=== PATIENT | female | born 1965 | race American Indian/Alaskan Native ===

== ENCOUNTER 2021-02-23 21:54 | Emergency (ER) | payer SELFPAY ==
[2021-02-23] MEDS ORDERED: HYDROmorphone 1 MG/1 ML INJ IM ONE (23:22)
[2021-02-23] MEDS ORDERED: KETOROLAC 30 MG/1 ML INJ IM ONE (23:22)
[2021-02-23] MEDS ORDERED: BUPIVACAINE/PF (0.5%) 5 MG/1 ML 10 ML VIAL INFILTRATI STA (23:23)
--- NOTE | 2021-02-23 23:24 | Emergency Department Report ---
Upper Extremity - HPI Chief Complaint: Extremity Injury, Upper Stated Complaint: RT ARM INJURY Time Seen by Provider: 02/23/21 23:16 Upper Extremity: Right Wrist, Right Hand Occurred When: Today Mechanism: Fall Severity: severe Symptoms: Yes Pain with Movement, Yes Deformity, Yes Limited Range of Movement, Yes Swelling, No Numbness, No Weakness, No Bruising/Ecchymosis, No Laceration or Abrasion Other History: The patient was evaluated in the emergency department for symptoms described in the history of present illness. He/she was evaluated in the context of the global COVID-19 pandemic, which necessitated consideration that the patient might be at risk for infection with the virus that causes COVID-19. Institutional protocols and algorithms that pertain to the evaluation of patients at risk for COVID-19 are in a state of rapid change based on information released by regulatory bodies including the CDC and federal and state organizations. These policies and algorithms were followed during the patient's care in the emergency department. Please note that these policies, procedures and recommendations changed on a rapid basis. Patient is a pleasant and cooperative 55-year-old female, who is left-hand dominant, who works as a teacher resource, presenting to the ER with a complaint of traumatic right sided hand/wrist pain, after mechanical trip and fall, and fall on outstretched hand. She denies headache, neck pain, chest pain, abdominal pain, shortness of breath, tingling, numbness, weakness, shoulder pain, or elbow pain. Her pain is in the right wrist, increases with palpation and range of motion, and decreases with rest. She does not have a history of high blood pressure that she is aware of. ED Review of Systems ROS: Stated complaint: RT ARM INJURY Other details as noted in HPI Constitutional: other (Denies loss of taste and smell). denies: fever Eyes: denies: eye discharge ENT: denies: epistaxis Respiratory: denies: cough Cardiovascular: denies: syncope Musculoskeletal: joint swelling, arthralgia, myalgia Neurological: denies: weakness, numbness Psychiatric: anxiety Hematological/Lymphatic: denies: easy bleeding ED Past Medical Hx - Past Medical History Previous Medical History?: No - Surgical History Past Surgical History?: No - Social History Smoking Status: Never Smoker Substance Use Type: None - Medications Home Medications: Home Medications Medication Instructions Recorded Confirmed Last Taken Type Acetaminophen [Non-Aspirin Extra 500 mg PO Q6HR PRN #30 tablet 02/23/21 Unknown Rx Strength] Ibuprofen [Motrin] 600 mg PO Q8H PRN #30 tablet 02/23/21 Unknown Rx Morphine Sulfate [Morphine Sulfate 7.5 mg PO Q6HR PRN #10 tablet 02/23/21 Unknown Rx IR] Upper Extremity Exam - Exam General: Vital signs noted. Mild distress. Alert and acting appropriately. No facial droop. Tongue midline. Extraocular movements intact bilaterally. Facial sensation intact to light touch in V1, V2, V3 distribution bilaterally. 5 and a 5 strength in 4 extremities. Sensation intact to light touch in 4 extremities. 2+ pulses noted in the bilateral upper extremities. There is no tenderness in the bilateral shoulders, elbows, or proximal forearm. Left upper extremity is nontender. Right upper extremity tender on the lateral distal forearm, lateral medial forearm. Sensation is intact to light touch in the bilateral deltoid, median, radian, ulnar distribution. Thumb opposition intact, although painful. Lumbricals intact, although painful to range. Head and Torso: No HEENT Abnormality, No Neck Tenderness, No Chest/Lungs Abnormality, No Abdominal Tenderness, No Back Tenderness Shoulder Exam: Yes Normal Range of Motion in Shoulder, No Shoulder Tenderness, No Clavicle Tenderness, No Shoulder Deformity, No AC Joint Tenderness Arm Exam: No Arm/Humerus Tenderness, No Arm Deformity Elbow: Yes Normal Range of Motion in Elbow, No Elbow Tenderness, No Elbow Deformity Forearm: Yes Forearm Tenderness (There is right distal forearm tenderness), Yes Forearm Deformity (There is right distal forearm deformity), Yes Pain with Pronation (Right side), Yes Pain with Supination (Right side) Wrist: Yes Wrist Tenderness (Right side), Yes Wrist Deformity (Right side), Yes Snuffbox Tenderness (Right side), Yes Pain with Axial Thumb Compression (Right side), No Normal ROM in Wrist (Limited secondary to pain) Hand: Yes Hand Tenderness, Yes Normal ROM in Digit(s), No Hand Deformity, No Digit Tenderness, No Digit(s) Deformity, No Tendon Dysfunction CMS Exam: Yes Normal Distal Pulses, Yes Normal Capillary Refill, Yes Normal Distal Sensation, No Broken Skin ED Course Vital Signs 02/23/21 22:52 Temperature 98.5 F Pulse Rate 76 Respiratory 16 Rate Blood Pressure 172/91 O2 Sat by Pulse 97 Oximetry - Reevaluation(s) Reevaluation #1: 05/29/21 23:30 Differential diagnosis, including but not limited to: Fracture, dislocation, sprain, strain Assessment and plan: 55-year-old female, status post fall on outstretched hand, with what appears to be an impacted right sided distal radius fracture, and possible avulsion fracture of left distal ulna. She is neurovascularly intact. We will treat her pain, perform hematoma block, she will require a thumb spica, as well as sugar tong splint. Counseled patient that she will need to closely follow-up with outpatient orthopedics, she will likely require surgical fixation, as well as physical therapy/Occupational Therapy. Reevaluation #2: 02/24/21 02:04 Splint is applied by donor services team leader and is acceptable. Patient feels much improved after bupivacaine hematoma block. Range of motion is improved in the fingers and thumb. Lumbricals remain intact. Have reiterated discharge instructions. Patient and family members endorsed understanding. - Joint Aspiration/Injection Consent Obtained: verbal consent Time Out Performed: Yes Indications: injection of medication (Hematoma block) Side of Body: right Joint Aspirated: wrist/hand Ultrasound Guidance: No Skin Prep: sterile prep and drape (Alcohol swab) Local Anesthesia Used: Bupivicaine 0.25% Amount of Anesthesia Used (mls): 4 Needle Size Used: Other (26-gauge needle) Syringe Size Used: 5cc Medication Injected, if any: other (Bupivacaine) Amount of Medication Injected (mls): 4 Patient Tolerated Procedure: well Complications: none - Pulse Oximetry Interpretation Digit-Finger Initial Pulse Oximetry Readin O2 Sat by Pulse Oximetry: 96 Actions Taken: none ED Medical Decision Making - Lab Data Vital Signs 02/23/21 22:52 Temperature 98.5 F Pulse Rate 76 Respiratory 16 Rate Blood Pressure 172/91 O2 Sat by Pulse 97 Oximetry Elevated blood pressure reviewed and appreciated. This is likely secondary to pain. The patient does not have a history of hypertension as per her history. Please reference the [employer] clinical policy on asymptomatic elevated blood pressure/hypertension. - Radiology Data Radiology results: report reviewed, image reviewed HISTORY:Right lower forearm swelling. COMPARISON: None. TECHNIQUE: AP lateral and obliques views were obtained FINDINGS: Bones: Comminuted fracture of the metaphyseal diaphyseal aspect of the distal radius is noted with extension into the articular space. Displacement and slight angulation is noted. Possible fracture of the ulnar styloid. Joint spaces: Maintained. Soft tissues: No significant abnormality. Additional findings: None. IMPRESSION: 1. Fracture as noted Signer Name: Jason Wolf MD Signed: 02/23/2021 10:28 PM Workstation Name: [id number] Critical care attestation.: If time is entered above; I have spent that time in minutes in the direct care of this critically ill patient, excluding procedure time. ED Disposition Clinical Impression: Pain in right ulna Fracture of right distal radius Qualifiers: Encounter type: initial encounter Fracture type: closed Fracture morphology: unspecified fracture morphology Qualified Code(s): S52.501A - Unspecified fracture of the lower end of right radius, initial encounter for closed fracture Fall Qualifiers: Encounter type: initial encounter Qualified Code(s): W19.XXXA - Unspecified fall, initial encounter Disposition: TO HOME OR SELFCARE Is pt being admited?: No Does the pt Need Aspirin: No Condition: Good Instructions: Cast or Splint Care, Adult, [id number], Radial Fracture Rehab- [facility] Additional Instructions: Please follow-up with an orthopedic surgeon within the next 3 to 5 days for distal right-sided radius fracture. Patient will likely require surgical fixation, as well as outpatient physical therapy and Occupational Therapy. Keep the splint in place, and take the pain medication as needed and directed. If taking the morphine sulfate for pain, do not drive, consume alcohol, or make important decisions. When taking ibuprofen for pain, make certain to take it with food. Dr. Art is an orthopedic surgeon. [facility] is a local orthopedic group. Pain typically gets worse before gets better after mechanical fall. Patient may alternate ice packs and heat packs as needed to areas of the body that are having physical pain. Please avoid heavy lifting and strenuous physical activity, and do not use the right upper extremity for any significant or heavy lifting. Patient may use the right upper extremity for light duty as tolerated. Please return to the emergency room right away with new pain, worsened pain, migration of pain, projectile vomiting, change in mental status, confusion, inability to tolerate liquid feeds, tingling, numbness, weakness, or any new, worsened or different symptoms not present on the initial emergency room evaluation. Prescriptions: Morphine Sulfate [Morphine Sulfate IR] 7.5 mg PO Q6HR PRN #10 tablet PRN Reason: Pain , Severe (7-10) Ibuprofen [Motrin] 600 mg PO Q8H PRN #30 tablet PRN Reason: Pain Acetaminophen [Non-Aspirin Extra Strength] 500 mg PO Q6HR PRN #30 tablet PRN Reason: Pain , Severe (7-10) Referrals: REUBEN ART MD [Staff Physician] - 3-5 Days [facility] [Provider Group] - 3-5 Days Forms: Work/School Release Form(ED)
--- NOTE | 2021-02-23 23:32 | XRay Report ---
HISTORY:Right lower forearm swelling. COMPARISON: None. TECHNIQUE: AP lateral and obliques views were obtained FINDINGS: Bones: Comminuted fracture of the metaphyseal diaphyseal aspect of the distal radius is noted with ex tension into the articular space. Displacement and slight angulation is noted. Possible fracture of t he ulnar styloid. Joint spaces: Maintained. Soft tissues: No significant abnormality. Additional findings: None. IMPRESSION: 1. Fracture as noted Signer Name: Jason Wolf MD Signed: 02/23/2021 11:28 PM Workstation Name: [id number]
[2021-02-24 02:09] VITALS: BP 152/89
== END 2021-02-24 02:23 | disposition home or self-care (01) ==
LOC: ED 21:54
DX: S52.591A Other fractures of lower end of right radius, initial encounter for closed fracture (principal); Z79.899 Other long term (current) drug therapy; W18.39XA Other fall on same level, initial encounter; Y93.89 Activity, other specified; Y92.89 Other specified places as the place of occurrence of the external cause; Y99.8 Other external cause status
CPT/HCPCS: 20605; 73090; 96372; 99283; J1170; J1885

== ENCOUNTER 2021-03-07 09:55 | Day surgery (SDC) | payer BC ==
[~2021-03-07 09:55] MED LIST: ACETAMINOPHEN 500 MG TAB PO SCH; CELECOXIB 200 MG CAP PO NR; GABAPENTIN 300 MG CAP PO NR; LACTATED RINGERS 1,000 ML IV SCH; MIDAZOLAM 2 MG/2 ML INJ IV NR; ceFAZolin/Water 2 GM/20 ML 2 GM/20 ML SYRINGE IV NR; fentaNYL 100 MCG/2 ML INJ IV PRN
[2021-03-07] MEDS ORDERED: BUPIVACAINE/PF (0.25%) 2.5 MG/ML 30 ML VIAL INFILTRATI ONE (13:12)
[2021-03-07] MEDS ORDERED: dexAMETHasone 4 MG/ML VIAL ONE (13:12)
[2021-03-07] MEDS ORDERED: ONDANSETRON 4 MG/2 ML INJ IV PRN (13:17)
[2021-03-07] MEDS ORDERED: HYDROcodone/ACETAMINOPHEN 5-325 MG TAB PO PRN (13:17)
[2021-03-07] MEDS ORDERED: HYDROmorphone 1 MG/1 ML INJ IV PRN (13:17)
--- NOTE | 2021-03-07 13:17 | Anesthesia Consultation ---
Anesthesia Consult and Med Hx Date of service: 03/07/21 - Airway Anesthetic Teeth Evaluation: Good ROM Head & Neck: Adequate Mental/Hyoid Distance: Adequate Mallampati Class: Class III Intubation Access Assessment: Possibly Difficult - Pre-Operative Health Status ASA Pre-Surgery Classification: ASA1 Proposed Anesthetic Plan: General Nerve Block: Supraclavicular - Pulmonary Hx Smoking: No Hx Respiratory Symptoms: No Hx Sleep Apnea: No (MORRIS PRE SCREEN LOW RISK) - Cardiovascular System Hx Hypertension: No - Central Nervous System CVA: No - Endocrine Hx Renal Disease: No Hx Liver Disease: No Hx Insulin Dependent Diabetes: No Hx Non-Insulin Dependent Diabetes: No Hx Thyroid Disease: No - Other Systems Hx Obesity: Yes (BMI 32) - Additional Comments Anesthesia Medical History Comments: No hx anesthetic complications.
--- NOTE | 2021-03-07 13:17 | Anesthesia Day of Surgery ---
Anesthesia Day of Surgery - Day of Surgery Patient Examined: Yes Patient H&P Reviewed: Yes Patient is NPO: Yes
[2021-03-07] MEDS ORDERED: propofoL 200 MG/20 ML VIAL IV ONE (13:31)
[2021-03-07] MEDS ORDERED: LIDOCAINE MPF (2%) 20 MG/1 ML VIAL 5 ML ONE (13:31)
[2021-03-07] MEDS ORDERED: HYDROmorphone 1 MG/1 ML INJ ONE (13:31)
[2021-03-07] MEDS ORDERED: BUPIVACAINE/PF (0.5%) 5 MG/1 ML 30 ML VIAL INFILTRATI ONE (13:35)
[2021-03-07] MEDS ORDERED: NEOMY 40 MG/POLYMYXIN B 200,000 UNITS/ML (GU) AMPULE IR ONE (13:36)
[2021-03-07] MEDS ORDERED: ePHEDrine SULFATE 50 MG/1 ML INJ ONE (14:26)
[2021-03-07] MEDS ORDERED: ONDANSETRON 4 MG/2 ML INJ ONE (14:29)
[2021-03-07] MEDS ORDERED: dexAMETHasone 20 MG/5 ML VIAL ONE (14:29)
--- NOTE | 2021-03-07 15:29 | Procedure Note ---
Date of procedure: 03/07/21 Pre-op diagnosis: Displaced comminuted right distal radius fracture Post-op diagnosis: same Procedure: Closed reduction insertion of intramedullary nail right distal radius Procedure The patient was brought to the OR after being given a axillary nerve block for postop pain management, she was placed on the OR table in supine position following induction with MAC anesthesia the patient's right upper extremity was prepped and draped in the usual sterile manner. A timeout procedure was done to identify the patient and the correct operative site next the arm was then exsanguinated followed by inflation of the pneumatic tourniquet to 250 mmHg using C arm the fracture was then manipulated into a more reduced or anatomic position the right distal radius was then held in place via temporary K wire fixation following this an incision was made over the Franklyn's tubercle this was then taken down sharply through skin and subcu care was taken to protect the soft tissue structures next using a 0.62 K wire the distal entry portal was established this was then overreamed next using the broach the distal fragment as well as the medullary canal proximally were aligned following this a size 2 micro nail was inserted using the the targeting device 3 screws were inserted into the distal fragment followed by 2 placed dorsally in the proximal fragment AP and lateral views were obtained showing good reduction of the fracture and placement of our hardware. Next the wounds were then copiously irrigated and was closed in a standard routine fashion postop dressings were applied as well as a well-padded forearm splint. Anesthesia: MAC, regional Surgeon: REUBEN JORDAN (Julisa Cornejo, 1st assist) Estimated blood loss: minimal Pathology: none Condition: stable Disposition: PACU
--- NOTE | 2021-03-07 16:40 | XRay Report ---
RIGHT WRIST 2 VIEWS INDICATION / CLINICAL INFORMATION: ORIF RT WRIST. COMPARISON: None available. FINDINGS: Intraoperative images demonstrate ORIF of the distal radial fracture. Signer Name: Liam Doherty MD Signed: 03/07/2021 4:35 PM Workstation Name: [id number]
--- NOTE | 2021-03-07 17:07 | Post Anesthesia Evaluation ---
- Post Anesthesia Evaluation Patient Participated: Yes Airway Patent: Yes Stable Respiratory Function: Yes Nausea/Vomiting: No Temp > 96.8F: Yes Pain Manageable: Yes Adequeate Hydration: Yes Anesthesia Complications: No Block Receding Appropriately: Yes
[2021-03-07 19:41] VITALS: BP 132/82
== END 2021-03-07 09:56 | disposition home or self-care (01) ==
LOC: OR 09:55
PROVIDERS: ATTEND Orthopaedic Surgery
DX: S52.571A Other intraarticular fracture of lower end of right radius, initial encounter for closed fracture (principal); S52.591A Other fractures of lower end of right radius, initial encounter for closed fracture; Z79.899 Other long term (current) drug therapy; E66.9 Obesity, unspecified; Z68.32 Body mass index [BMI] 32.0-32.9, adult; Z86.2 Personal history of diseases of the blood and blood-forming organs and certain disorders involving the immune mechanism; W18.39XA Other fall on same level, initial encounter; Y93.89 Activity, other specified; Y92.89 Other specified places as the place of occurrence of the external cause; Y99.8 Other external cause status
CPT/HCPCS: 25606; 64415; 64417; 73100; C1713; J0690; J1100; J1170; J2250; J2405; J2704; J3010; J7120; 64450

== ENCOUNTER 2021-08-26 13:40 | Outpatient (CLI) | payer BC ==
--- NOTE | 2021-08-26 14:46 | XRay Report ---
RIGHT WRIST 4 VIEWS INDICATION: Right wrist pain. COMPARISON: 03/07/2021 IMPRESSION: Osteopenia is evident. The healed internally fixated distal radial fracture appears unch anged in position and alignment since 03/07/2021. No evidence for acute fracture. Mild osteoarthritic changes are noted. RIGHT HAND 3 VIEWS INDICATION: RIGHT HAND PAIN. COMPARISON: None. IMPRESSION: Osteopenia is evident. No acute osseous abnormality or bone lesion. Mild diffuse osteoa rthritic changes are noted. The soft tissues are unremarkable Signer Name: Chapo Chicas Jr, MD Signed: 08/26/2021 2:41 PM Workstation Name: [id number]
== END 2021-08-26 13:41 | disposition home or self-care (01) ==
LOC: XRAY 13:40
PROVIDERS: ATTEND Orthopaedic Surgery
DX: S52.591A Other fractures of lower end of right radius, initial encounter for closed fracture (principal); M19.031 Primary osteoarthritis, right wrist; M85.88 Other specified disorders of bone density and structure, other site; M19.041 Primary osteoarthritis, right hand; M85.841 Other specified disorders of bone density and structure, right hand; X58.XXXA Exposure to other specified factors, initial encounter; Y93.89 Activity, other specified; Y92.89 Other specified places as the place of occurrence of the external cause; Y99.8 Other external cause status

== ENCOUNTER 2021-09-18 08:18 | Day surgery (SDC) | payer BC ==
[2021-09-18] MEDS ORDERED: LACTATED RINGERS 1,000 ML IV SCH (09:00)
[2021-09-18] MEDS ORDERED: methylPREDNISolone ACETATE 40 MG/1 ML INJ ONE (09:15)
[2021-09-18] MEDS ORDERED: LIDOCAINE (1%) 10 MG/1 ML VIAL 20 ML MDV ONE (09:15)
[2021-09-18] MEDS ORDERED: BUPIVACAINE/PF (0.25%) 2.5 MG/ML 30 ML VIAL INFILTRATI ONE (09:21)
[2021-09-18] MEDS ORDERED: ONDANSETRON 4 MG/2 ML INJ IV PRN (09:31)
[2021-09-18] MEDS ORDERED: HYDROmorphone 1 MG/1 ML INJ IV PRN (09:31)
--- NOTE | 2021-09-18 09:32 | Anesthesia Day of Surgery ---
Anesthesia Day of Surgery - Day of Surgery Patient Examined: Yes Patient H&P Reviewed: Yes Patient is NPO: Yes
--- NOTE | 2021-09-18 09:33 | Anesthesia Consultation ---
Anesthesia Consult and Med Hx Date of service: 09/18/21 - Airway Anesthetic Teeth Evaluation: Good ROM Head & Neck: Adequate Mental/Hyoid Distance: Adequate Mallampati Class: Class II Intubation Access Assessment: Good - Pre-Operative Health Status ASA Pre-Surgery Classification: ASA1 Proposed Anesthetic Plan: General - Pulmonary Hx Smoking: No Hx Respiratory Symptoms: No Hx Sleep Apnea: No (MORRIS PRE SCREEN LOW RISK) - Cardiovascular System Hx Hypertension: No - Central Nervous System CVA: No Hx Psychiatric Problems: No - Endocrine Hx Renal Disease: No Hx Liver Disease: No Hx Insulin Dependent Diabetes: No Hx Non-Insulin Dependent Diabetes: No Hx Thyroid Disease: No - Hematic Hx Anemia: Yes (WITH PREG ONLY) - Other Systems Hx Cancer: No Hx Obesity: No - Additional Comments Anesthesia Medical History Comments: Was here [id number]
[2021-09-18] MEDS ORDERED: LIDOCAINE MPF (2%) 20 MG/1 ML VIAL 5 ML ONE (09:44)
[2021-09-18] MEDS ORDERED: PHENYLEPHRINE/NS 1,000 MCG/10 ML SYRINGE (OR USE) IV ONE (09:44)
[2021-09-18] MEDS ORDERED: fentaNYL 100 MCG/2 ML INJ ONE (09:45)
[2021-09-18] MEDS ORDERED: propofoL 200 MG/20 ML VIAL IV ONE (09:45)
--- NOTE | 2021-09-18 10:21 | Procedure Note ---
Date of procedure: 09/18/21 Pre-op diagnosis: Stiff right fourth and fifth fingers status post ORIF right distal radius Post-op diagnosis: same Procedure: Manipulation right 4,5th fingers Procedure The patient was brought to the OR and placed in the OR table in supine position following induction with MAC anesthesia. A timeout procedure was done to identify the patient and the correct operative site. Next the right hand was grasped and gentle flexion/extension maneuvers done along the ulnar border of the hand beginning at the wrist,metacarpophalangeal, PIP, and DIP joints of both 4, and 5 th digits, following manipulation the fingers appeared somewhat straighter than at the beginning however the 4th PIP appear more mobile, therefore splints applied. Post op xrays taken reveal fx at base proximal phalanx. Anesthesia: MAC Surgeon: REUBEN JORDAN Estimated blood loss: none Pathology: none Condition: stable Disposition: PACU
[2021-09-18] MEDS: HYDROmorphone 1 MG/1 ML INJ IV PRN ×2 (10:40→10:50)
--- NOTE | 2021-09-18 10:57 | XRay Report ---
Right hand 3 views INDICATION: Postop FINDINGS: Advanced degenerative change and base of thumb. Postoperative change of the distal radius. Diffuse osteopenia is noted. Degenerative change throughout IP joints with subluxation most significa nt in the ring finger. 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 There is a fracture deformity within the proximal aspect middle phalanx of the ring finger. Subluxation of the MCP joints and IP joints. Signer Name: Amilcar Lazo MD Signed: 09/18/2021 10:53 AM Workstation Name: [id number]
--- NOTE | 2021-09-18 11:19 | Post Anesthesia Evaluation ---
- Post Anesthesia Evaluation Patient Participated: Yes Airway Patent: Yes Stable Respiratory Function: Yes Nausea/Vomiting: No Temp > 96.8F: Yes Pain Manageable: Yes Adequeate Hydration: Yes Anesthesia Complications: No Block Receding Appropriately: Not Applicable Patient on Ventilator: No
[2021-09-18 12:04] VITALS: BP 131/62
== END 2021-09-18 12:10 | disposition home or self-care (01) ==
LOC: OR 08:18
PROVIDERS: ATTEND Orthopaedic Surgery
DX: M25.641 Stiffness of right hand, not elsewhere classified (principal); D64.9 Anemia, unspecified; Z79.899 Other long term (current) drug therapy; Z98.890 Other specified postprocedural states
CPT/HCPCS: 26340; 73120; J1030; J1170; J2370; J2704; J3010; J3490; J7120